=== PATIENT | male | born 1970 | race Caucasian/White ===

== ENCOUNTER → 2018-09-19 16:11 | Outpatient (CLI) | payer OTHER, MEDICAID, SELFPAY ==
--- NOTE | 2018-09-19 | DI.RAD.S_ITS ---
PROCEDURE: XR LUMBAR SPINE 2-3V INDICATIONS: LOW BACK PAIN TECHNIQUE: 3 views of the lumbar spine were acquired. COMPARISON: [facility], , L-SPINE 2-3 VIEWS, 05/12/2008, 10:37. FINDINGS: Bones: 5 [id number] vertebrae are present. There is scoliosis. No vertebral body compression fractures. No suspicious bony lesions. There is mild to moderate degenerative disc disease at L3-L4 and L4-L5. Soft tissues: Overlying bowel gas pattern is normal. No suspicious soft tissue calcifications. IMPRESSION: 1. Mild degenerative disc disease and facet arthropathy. 2. Mild scoliosis. Dictated by: Luca Elena M.D. on 09/19/2018 at 17:47 Approved by: Luca Elena M.D. on 09/19/2018 at 17:49
== END ==
PROVIDERS: Family Provider Family Medicine; Visit Provider Internal Medicine
DX: M54.5 Low back pain (principal); M51.36 Other intervertebral disc degeneration, lumbar region; M47.816 Spondylosis without myelopathy or radiculopathy, lumbar region; M47.9 Spondylosis, unspecified
CPT/HCPCS: 72100

== ENCOUNTER 2018-12-27 09:00 | Outpatient (RCR) | payer OTHER, MEDICAID, SELFPAY ==
--- NOTE | 2018-12-04 15:05 | PT.OIE ---
Current Diagnoses Stiffness of unspecified joint, not elsewhere classified (12/04/18) Low back pain (12/04/18) Provider Visit Care Team Role Provider Type Nguyễn Olivas MD Attending Provider Physician Primary Care Provider Specialty: Wound Care Address: [address] [place] [address], [id number] Email: [email or web address] Physical Therapy Initial Evaluation PT-OP-A Visit Information Start: 12/04/18 14:35 Freq: Status: Active Protocol: Document 12/04/18 13:45 DCW (Rec: 12/04/18 15:05 DC [id number]) Out-Patient Physical Therapy Visit Information Visit Information Visit Type Initial Evaluation Visit Start Time 13:45 Visit Stop Time 14:25 Total Visit Minutes 40 Visit Number 1 Number of SEAMAN OFFICER Visits 0 Evaluation Information Evaluation Date 12/04/18 PT-OP-B Current Condition Start: 12/04/18 14:35 Freq: Status: Active Protocol: Document 12/04/18 13:45 DCW (Rec: 12/04/18 15:05 DCW [id number]) Current Condition History of Current Condition Onset Date 4-5 year history Current Complaints Low back pain, stiffness, difficulty lifting History of Current Condition Pt is a 48 year old male presenting to physical therapy with complaints of chronic low back pain. Pt reports he has been having pain for 4-5 years, and onset was insidious in nature. Pt notes his pain varies day-to-day, but does not seem to have gotten any better or worse over the past few years. 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 Pt reports he has begun to work on losing weight, which he believes will help, and has already lost 15 pounds. Pt denies radicular symptoms, but does not a left inguinal hernia, which may be detrimental to some of his activity as well. Prior Treatments and Tests MRI:Degenerative disc bulge and bilateral facet arthrosis at L3-4 through L5-S1 levels causing mild-moderate central canal stenosis, per Bj Mchugh on 09/30/18. Treatment Goals Patient/Caregiver Goals Pt reports his goal is to improve his agility and to return to reasonable active living without pain. Prior Functional Status Baseline Function- ADL's Independent Baseline Function- Mobility Independent Current Functional Impairments (Reported) Functional Limitations- ADL's Reports he normally gets to a point in the evening when he feels he has to be done with the standing portion of my day , and spend the rest of the day laying down because of pain. 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 PT-OP-C Subjective Start: 12/04/18 14:35 Freq: Status: Active Protocol: Document 12/04/18 13:45 DCW (Rec: 12/04/18 15:05 DCW [id number]) OP-PT Subjective Patient Comments Patient Reported Progress Same Patient Questionnaires Oswestry Low Back Index Oswestry Score 14/40 = 35% (2 answers left blank) Oswestry Impairment 20 to 39% Impaired (Score 20- 39) OP-PT Pain Assessment Pain Assessment Grid Paper Pain Assessment Grid Completed Yes Location Bilateral Lower Back Intensity 7 Scale Used Numeric (1 - 10) Description Chronic Sharp Spasm Tender Tightness Pain Aggravating Factors Standing Bending Lifting PT-OP-F Manual Assessment Start: 12/04/18 14:35 Freq: Status: Active Protocol: Document 12/04/18 13:45 DCW (Rec: 12/04/18 15:05 DCW [id number]) Manual Assessments Soft Tissue Assessment Soft Tissue Mobility Assessment Moderate tone in lumbar paraspinals, R>L Moderate tone R QL Moderate bilateral hamstring tightness Joint Mobility Assessment Joint Mobility Assessment L3, L4 hypomobility with P->A joint mobilizations, reports of discomfort. PT-OP-K Range of Motion Start: 12/04/18 14:35 Freq: Status: Active Protocol: Document 12/04/18 13:45 DCW (Rec: 12/04/18 15:05 DCW [id number]) Lumbar Spine Range of Motion Lumbar Spine Active Degrees Testing Position Standing Flexion 40 Extension 20 ROM Limitations Soft Tissue Tightness Muscle Tone Comments Lateral flexion measured in cm , fingertips to floor. Left: 64 cm; Right: 59 cm PT-OP-L Special Tests Start: 12/04/18 14:35 Freq: Status: Active Protocol: Document 12/04/18 13:45 DCW (Rec: 12/04/18 15:05 [facility] [id number]) Special Tests Lumbar Spine Special Tests Lateral SI compression Test Results Negative A-P Shearing Test Results Negative Vertical Spine Loading Test Results Negative Straight Leg Raise Test Results + for pain on right side with active SLR Standing Flexion Test Results c/o tightness at 40? Prone Press Up Test Results Negative Compression Test Results Negative Hip Special Tests REY Test Results Negative PT-OP-M Strength Start: 12/04/18 14:35 Freq: Status: Active Protocol: Document 12/04/18 13:45 DCW (Rec: 12/04/18 15:05 [facility] [id number]) Trunk Strength Trunk Manual Muscle Testing Testing Position Supine Core Stabilization Pt able to maintain TrA contraction with bilateral SLR for 5 seconds with no pain; 5 /5 Hip Strength Hip Manual Muscle Testing Bilateral Flexion (L2) 5 Normal Abduction 5 Normal Adduction 5 Normal External Rotation 5 Normal Internal Rotation 5 Normal Knee Strength Knee Manual Muscle Testing Bilateral Flexion (S2) 5 Normal Extension (L3) 5 Normal Ankle/Foot Strength Ankle and Foot Manual Muscle Testing Bilateral Dorsiflexion (L4) 5 Normal Plantarflexion (S1) 5 Normal PT-OP-Q Treatments Start: 12/04/18 14:35 Freq: Status: Active Protocol: Document 12/04/18 13:45 DCW (Rec: 12/04/18 15:05 [facility] [id number]) Therapeutic Exercises Sitting Exercises [place] Sitting Exercise Name [place] Side bilateral Lumbar Flexion Sitting Exercise Name Seated lumbar flexion stretch Comments focus on flexion from lumbar spine, not hips or T-spine PT-OP-T Assessment and Plan Start: 12/04/18 14:35 Freq: Status: Active Protocol: Document 12/04/18 13:45 DCW (Rec: 12/04/18 15:05 [facility] [id number]) Physical Therapy Assessment Rehab Potential Rehabilitation Potential Good Evaluation Complexity Number of Personal Factors/Comorbidities 0 Number of Body Systems Impaired 3 Clinical Presentation at Evaluation Stable Impairments Impairments Activity Tolerance Pain Posture Soft Tissue Mobility Goals Five Impairment Pt has a 5 cm discrepancy in L vs R lumbar lateral flexion Mcfp Goal (LTG) Pt to demonstrate lumbar lateral flexion L=R LTG Duration 02/03/19 Four Impairment Positive right SLR Short Term Goal (STG) Negative SLR bilaterally STG Duration 01/03/19 Three Impairment Pt scores 35% disability on Oswestry Mcfp Goal (LTG) Pt to score <20% disability on Oswestry LTG Duration 02/03/19 Two Impairment Pt experiences pain when helping band set up prior to shows Mcfp Goal (LTG) Pt to report no increase in pain when lifting or arranging amps or speakers LTG Duration 02/03/19 One Impairment Pt does not have an appropriate HEP Short Term Goal (STG) Pt to be independent and compliant with an independent HEP STG Duration 01/03/19 Assessment Summary Assessment Pt presents with moderate tone throughout his lumbar paraspinals, R>L, his Right QL , and his hamstrings bilaterally. Py also displays hypomobility in his L3 and L4 vertebrae. Pt's pain restricts him from standing for long periods of time, limits his participation in highly-active hobbies, and creates pain when setting up band equipment . Pt should benefit from skilled therapy focused on stretching/flexibility, manual therapy, modalities to decrease pain and improve mobility (e-stim/US), and training for body mechanics and posture to limit effects of back pain on his lifting. Physical Therapy Plan Frequency and Duration Frequency of Treatment 2x/Week Duration of Treatment 10 weeks Plan of Care Start Date 12/04/18 Plan of Care End Date 02/12/19 Therapeutic Interventions Therapeutic Interventions Home Exercise Program Joint Mobilizations Manual Therapy Neuromuscular Re-education Patient/Caregiver Education Soft Tissue Mobilization Taping Therapeutic Activities Therapeutic Exercises Modalities Cold Pack/Ice Massage Electric Stimulation Hot Packs Ultrasound Other Therapeutic Interventions Body mechanics training Next Visit Focus/Plan Next Note Type Treatment Note Next Visit Plan STM, stretching, e-stim/US, body mechanics training.
--- NOTE | 2018-12-04 15:07 | PT.OPPOC ---
Current Diagnoses Stiffness of unspecified joint, not elsewhere classified (12/04/18) Low back pain (12/04/18) Provider Visit Care Team Role Provider Type Nguyễn Olivas MD Attending Provider Physician Primary Care Provider Specialty: Wound Care Address: [address] [place] [address], [id number] Email: [email or web address] Plan Of Care PT-OP-T Assessment and Plan Start: 12/04/18 14:35 Freq: Status: Active Protocol: Document 12/04/18 13:45 DCW (Rec: 12/04/18 15:05 DCW [id number]) Physical Therapy Assessment Rehab Potential Rehabilitation Potential Good Evaluation Complexity Number of Personal Factors/Comorbidities 0 Number of Body Systems Impaired 3 Clinical Presentation at Evaluation Stable Impairments Impairments Activity Tolerance Pain Posture Soft Tissue Mobility Goals Five Impairment Pt has a 5 cm discrepancy in L vs R lumbar lateral flexion Complaint Coordinator Goal (LTG) Pt to demonstrate lumbar lateral flexion L=R LTG Duration 02/03/19 Four Impairment Positive right SLR Short Term Goal (STG) Negative SLR bilaterally STG Duration 01/03/19 Three Impairment Pt scores 35% disability on Oswestry Intermediate Goal (LTG) Pt to score <20% disability on Oswestry LTG Duration 02/03/19 Two Impairment Pt experiences pain when helping band set up prior to shows Complaint Coordinator Goal (LTG) Pt to report no increase in pain when lifting or arranging amps or speakers LTG Duration 02/03/19 One Impairment Pt does not have an appropriate HEP Short Term Goal (STG) Pt to be independent and compliant with an independent HEP STG Duration 01/03/19 Assessment Summary Assessment Pt presents with moderate tone throughout his lumbar paraspinals, R>L, his Right QL , and his hamstrings bilaterally. Py also displays hypomobility in his L3 and L4 vertebrae. Pt's pain restricts him from standing for long periods of time, limits his participation in highly-active hobbies, and creates pain when setting up band equipment . Pt should benefit from skilled therapy focused on stretching/flexibility, manual therapy, modalities to decrease pain and improve mobility (e-stim/US), and training for body mechanics and posture to limit effects of back pain on his lifting. Physical Therapy Plan Frequency and Duration Frequency of Treatment 2x/Week Duration of Treatment 10 weeks Plan of Care Start Date 12/04/18 Plan of Care End Date 02/12/19 Therapeutic Interventions Therapeutic Interventions Home Exercise Program Joint Mobilizations Manual Therapy Neuromuscular Re-education Patient/Caregiver Education Soft Tissue Mobilization Taping Therapeutic Activities Therapeutic Exercises Modalities Cold Pack/Ice Massage Electric Stimulation Hot Packs Ultrasound Other Therapeutic Interventions Body mechanics training Next Visit Focus/Plan Next Note Type Treatment Note Next Visit Plan STM, stretching, e-stim/US, body mechanics training. Plan of Care Dates Plan of Care Start Date 12/04/18 Plan of Care End Date 02/12/19 Please Sign and Return: I have reviewed this Plan of Care and certify that the skilled therapy services above are required to meet the patient?s needs. Physician Signature Date Printed Name and Credentials Clinical Instructor Signature Printed Name and Credentials
--- NOTE | 2018-12-16 19:03 | PT.OTN ---
Current Diagnoses Stiffness of unspecified joint, not elsewhere classified (12/16/18) Low back pain (12/16/18) Physical Therapy Treatment Note PT-OP-A Visit Information Start: 12/04/18 14:35 Freq: Status: Active Protocol: Document 12/17/18 07:50 [facility] (Rec: 12/17/18 08:03 [facility] [id number]) Out-Patient Physical Therapy Visit Information Visit Information Visit Type Treatment Note Visit Start Time 17:30 Visit Stop Time 18:30 Total Visit Minutes 60 Visit Number 2 Number of RAILROAD EMERGENCY SERVICES MANAGER Visits 0 PT-OP-B Current Condition Start: 12/04/18 14:35 Freq: Status: Active Protocol: Document 12/04/18 13:45 DCW (Rec: 12/04/18 15:05 DCW [id number]) Current Condition History of Current Condition Onset Date 4-5 year history Current Complaints Low back pain, stiffness, difficulty lifting History of Current Condition Pt is a 48 year old male presenting to physical therapy with complaints of chronic low back pain. Pt reports he has been having pain for 4-5 years, and onset was insidious in nature. Pt notes his pain varies day-to-day, but does not seem to have gotten any better or worse over the past few years. 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 Pt reports he has begun to work on losing weight, which he believes will help, and has already lost 15 pounds. Pt denies radicular symptoms, but does not a left inguinal hernia, which may be detrimental to some of his activity as well. Prior Treatments and Tests MRI:Degenerative disc bulge and bilateral facet arthrosis at L3-4 through L5-S1 levels causing mild-moderate central canal stenosis, per Bj Mchugh on 09/30/18. Treatment Goals Patient/Caregiver Goals Pt reports his goal is to improve his agility and to return to reasonable active living without pain. Prior Functional Status Baseline Function- ADL's Independent Baseline Function- Mobility Independent Current Functional Impairments (Reported) Functional Limitations- ADL's Reports he normally gets to a point in the evening when he feels he has to be done with the standing portion of my day , and spend the rest of the day laying down because of pain. 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 Notes he is sore today. PT-OP-F Manual Assessment Start: 12/04/18 14:35 Freq: Status: Active Protocol: Document 12/04/18 13:45 DCW (Rec: 12/04/18 15:05 DCW [id number]) Manual Assessments Soft Tissue Assessment Soft Tissue Mobility Assessment Moderate tone in lumbar paraspinals, R>L Moderate tone R QL Moderate bilateral hamstring tightness Joint Mobility Assessment Joint Mobility Assessment L3, L4 hypomobility with P->A joint mobilizations, reports of discomfort. PT-OP-K Range of Motion Start: 12/04/18 14:35 Freq: Status: Active Protocol: Document 12/04/18 13:45 DCW (Rec: 12/04/18 15:05 DCW [id number]) Lumbar Spine Range of Motion Lumbar Spine Active Degrees Testing Position Standing Flexion 40 Extension 20 ROM Limitations Soft Tissue Tightness Muscle Tone Comments Lateral flexion measured in cm , fingertips to floor. Left: 64 cm; Right: 59 cm PT-OP-L Special Tests Start: 12/04/18 14:35 Freq: Status: Active Protocol: Document 12/04/18 13:45 DCW (Rec: 12/04/18 15:05 DCW [id number]) Special Tests Lumbar Spine Special Tests Lateral SI compression Test Results Negative A-P Shearing Test Results Negative Vertical Spine Loading Test Results Negative Straight Leg Raise Test Results + for pain on right side with active SLR Standing Flexion Test Results c/o tightness at 40? Prone Press Up Test Results Negative Compression Test Results Negative Hip Special Tests REY Test Results Negative PT-OP-M Strength Start: 12/04/18 14:35 Freq: Status: Active Protocol: Document 12/04/18 13:45 DCW (Rec: 12/04/18 15:05 DCW [id number]) Trunk Strength Trunk Manual Muscle Testing Testing Position Supine Core Stabilization Pt able to maintain TrA contraction with bilateral SLR for 5 seconds with no pain; 5 /5 Hip Strength Hip Manual Muscle Testing Bilateral Flexion (L2) 5 Normal Abduction 5 Normal Adduction 5 Normal External Rotation 5 Normal Internal Rotation 5 Normal Knee Strength Knee Manual Muscle Testing Bilateral Flexion (S2) 5 Normal Extension (L3) 5 Normal Ankle/Foot Strength Ankle and Foot Manual Muscle Testing Bilateral Dorsiflexion (L4) 5 Normal Plantarflexion (S1) 5 Normal PT-OP-Q Treatments Start: 12/04/18 14:35 Freq: Status: Active Protocol: Document 12/17/18 07:50 [facility] (Rec: 12/17/18 08:03 [facility] [id number]) Therapeutic Exercises Supine Exercises brace Supine Exercise Name abdomenal brace Reps/Minutes 8 Comments w/focus on breathing hip flex Supine Exercise Name alt august Comments stopped d/t ant hip impingement sensation bridge Supine Exercise Name w/traction facilitation through LE Side bilateral Reps/Minutes 10 Sitting Exercises [place] Sitting Exercise Name [place] Side bilateral Lumbar Flexion Sitting Exercise Name Seated lumbar flexion stretch Comments focus on flexion from lumbar spine, not hips or T-spine Standing Exercises wall posture Standing Exercise Name wall roll up w/90/90 UE ER Side bilateral Reps/Minutes 20 Other Exercises quadruped Other Exercise Name hip ext Side bilateral Reps/Minutes 15 cat/camel Other Exercise Name cat/camel Reps/Minutes 5 Therapeutic Activity Therapeutic Activity lifting Name edu for lifting mechanics Comments started with lifting bolster and progressed to lifting 10lbs in crate sleeping Name sleeping position edu & handouts posture Name standing posture, desk posture , seated posture PT-OP-R Modalities Start: 12/04/18 14:35 Freq: Status: Active Protocol: Document 12/17/18 07:50 [facility] (Rec: 12/17/18 08:03 [facility] [id number]) Electric Stimulation Electric Stimulation Interferential Current (IFC) Body Location LS region Duration (Minutes) 15 Patient Position Hooklying Combined With Heat/Cold Hot Pack PT-OP-T Assessment and Plan Start: 12/04/18 14:35 Freq: Status: Active Protocol: Document 12/17/18 07:50 [facility] (Rec: 12/17/18 08:03 [facility] [id number]) Physical Therapy Assessment Goals Five Impairment Pt has a 5 cm discrepancy in L vs R lumbar lateral flexion Group Home Goal (LTG) Pt to demonstrate lumbar lateral flexion L=R LTG Duration 02/03/19 Four Impairment Positive right SLR Short Term Goal (STG) Negative SLR bilaterally STG Duration 01/03/19 Three Impairment Pt scores 35% disability on Oswestry Revenue Specialist Goal (LTG) Pt to score <20% disability on Oswestry LTG Duration 02/03/19 Two Impairment Pt experiences pain when helping band set up prior to shows Revenue Specialist Goal (LTG) Pt to report no increase in pain when lifting or arranging amps or speakers LTG Duration 02/03/19 One Impairment Pt does not have an appropriate HEP Short Term Goal (STG) Pt to be independent and compliant with an independent HEP STG Duration 01/03/19 Assessment Summary Assessment Pt rounded back inititially into flex to lift up a box and required cueing for straight back. He then required correction as she extended his lower lumbar & sacral region when standing up from a squat. WIth cueing for glute & core activition, pt was able to do it without pain. He required cueing and facilition for exercises, but was able to participate in exercises. Physical Therapy Plan Frequency and Duration Frequency of Treatment 2x/Week Duration of Treatment 10 weeks Plan of Care Start Date 12/04/18 Plan of Care End Date 02/12/19 Next Visit Focus/Plan Next Note Type Treatment Note Next Visit Plan STM, hip and sacral mobs, assess response to estim, review lifting mechanics & posture.
--- NOTE | 2018-12-18 14:28 | PT.OTN ---
Current Diagnoses Stiffness of unspecified joint, not elsewhere classified (12/18/18) Low back pain (12/18/18) Physical Therapy Treatment Note PT-OP-A Visit Information Start: 12/04/18 14:35 Freq: Status: Active Protocol: Document 12/18/18 13:45 DCW (Rec: 12/18/18 14:28 DCW [id number]) Out-Patient Physical Therapy Visit Information Visit Information Visit Type Treatment Note Visit Start Time 13:45 Visit Stop Time 14:30 Total Visit Minutes 45 Visit Number 3 Number of WELFARE AIDE Visits 0 Evaluation Information Evaluation Date 12/04/18 PT-OP-B Current Condition Start: 12/04/18 14:35 Freq: Status: Active Protocol: Document 12/04/18 13:45 DCW (Rec: 12/04/18 15:05 DCW [id number]) Current Condition History of Current Condition Onset Date 4-5 year history Current Complaints Low back pain, stiffness, difficulty lifting History of Current Condition Pt is a 48 year old male presenting to physical therapy with complaints of chronic low back pain. Pt reports he has been having pain for 4-5 years, and onset was insidious in nature. Pt notes his pain varies day-to-day, but does not seem to have gotten any better or worse over the past few years. 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 Pt reports he has begun to work on losing weight, which he believes will help, and has already lost 15 pounds. Pt denies radicular symptoms, but does not a left inguinal hernia, which may be detrimental to some of his activity as well. Prior Treatments and Tests MRI:Degenerative disc bulge and bilateral facet arthrosis at L3-4 through L5-S1 levels causing mild-moderate central canal stenosis, per Bj Mchugh on 09/30/18. Treatment Goals Patient/Caregiver Goals Pt reports his goal is to improve his agility and to return to reasonable active living without pain. Prior Functional Status Baseline Function- ADL's Independent Baseline Function- Mobility Independent Current Functional Impairments (Reported) Functional Limitations- ADL's Reports he normally gets to a point in the evening when he feels he has to be done with the standing portion of my day , and spend the rest of the day laying down because of pain. 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 PT-OP-F Manual Assessment Start: 12/04/18 14:35 Freq: Status: Active Protocol: Document 12/04/18 13:45 DCW (Rec: 12/04/18 15:05 DCW [id number]) Manual Assessments Soft Tissue Assessment Soft Tissue Mobility Assessment Moderate tone in lumbar paraspinals, R>L Moderate tone R QL Moderate bilateral hamstring tightness Joint Mobility Assessment Joint Mobility Assessment L3, L4 hypomobility with P->A joint mobilizations, reports of discomfort. PT-OP-K Range of Motion Start: 12/04/18 14:35 Freq: Status: Active Protocol: Document 12/04/18 13:45 DCW (Rec: 12/04/18 15:05 DCW [id number]) Lumbar Spine Range of Motion Lumbar Spine Active Degrees Testing Position Standing Flexion 40 Extension 20 ROM Limitations Soft Tissue Tightness Muscle Tone Comments Lateral flexion measured in cm , fingertips to floor. Left: 64 cm; Right: 59 cm PT-OP-L Special Tests Start: 12/04/18 14:35 Freq: Status: Active Protocol: Document 12/04/18 13:45 DCW (Rec: 12/04/18 15:05 DCW [id number]) Special Tests Lumbar Spine Special Tests Lateral SI compression Test Results Negative A-P Shearing Test Results Negative Vertical Spine Loading Test Results Negative Straight Leg Raise Test Results + for pain on right side with active SLR Standing Flexion Test Results c/o tightness at 40? Prone Press Up Test Results Negative Compression Test Results Negative Hip Special Tests REY Test Results Negative PT-OP-M Strength Start: 12/04/18 14:35 Freq: Status: Active Protocol: Document 12/04/18 13:45 DCW (Rec: 12/04/18 15:05 DCW [id number]) Trunk Strength Trunk Manual Muscle Testing Testing Position Supine Core Stabilization Pt able to maintain TrA contraction with bilateral SLR for 5 seconds with no pain; 5 /5 Hip Strength Hip Manual Muscle Testing Bilateral Flexion (L2) 5 Normal Abduction 5 Normal Adduction 5 Normal External Rotation 5 Normal Internal Rotation 5 Normal Knee Strength Knee Manual Muscle Testing Bilateral Flexion (S2) 5 Normal Extension (L3) 5 Normal Ankle/Foot Strength Ankle and Foot Manual Muscle Testing Bilateral Dorsiflexion (L4) 5 Normal Plantarflexion (S1) 5 Normal PT-OP-Q Treatments Start: 12/04/18 14:35 Freq: Status: Active Protocol: Document 12/18/18 13:45 DCW (Rec: 12/18/18 14:28 DCW [id number]) Therapeutic Exercises Supine Exercises PPT /c SLR Supine Exercise Name PPT, abdominal brace, alternating SLR Side bilateral brace Supine Exercise Name abdominal brace Reps/Minutes x10 Comments w/focus on breathing bridge Supine Exercise Name w/traction facilitation through LE Side bilateral Reps/Minutes 10 Other Exercises child's pose Other Exercise Name child's pose quadruped Other Exercise Name hip ext Side bilateral Reps/Minutes 15 cat/camel Other Exercise Name cat/camel Reps/Minutes 5 Manual Therapy Treatment Soft Tissue Mobilization QL Body Location R QL Mobilization Type Myofascial Release Sustained Pressure Trigger Point Release Body Position Prone Paraspinals Body Location B Lumbar paraspinals Mobilization Type Myofascial Release Sustained Pressure Trigger Point Release Body Position Prone Joint Mobilizations Lumbar Joint L1-5 Direction P->A Grade III Body Position Prone Manual Traction Lower Extremity Details Long-axis LE traction Body Position Supine PT-OP-R Modalities Start: 12/04/18 14:35 Freq: Status: Active Protocol: Document 12/18/18 13:45 DCW (Rec: 12/18/18 14:28 DCW [id number]) Electric Stimulation Electric Stimulation Interferential Current (IFC) Body Location LS region Duration (Minutes) 15 Patient Position Hooklying Combined With Heat/Cold Hot Pack PT-OP-T Assessment and Plan Start: 12/04/18 14:35 Freq: Status: Active Protocol: Document 12/18/18 13:45 DCW (Rec: 12/18/18 14:28 DCW [id number]) Physical Therapy Assessment Goals Five Impairment Pt has a 5 cm discrepancy in L vs R lumbar lateral flexion Taxi Servicer Goal (LTG) Pt to demonstrate lumbar lateral flexion L=R LTG Duration 02/03/19 Four Impairment Positive right SLR Short Term Goal (STG) Negative SLR bilaterally STG Duration 01/03/19 Three Impairment Pt scores 35% disability on Oswestry Taxi Servicer Goal (LTG) Pt to score <20% disability on Oswestry LTG Duration 02/03/19 Two Impairment Pt experiences pain when helping band set up prior to shows Taxi Servicer Goal (LTG) Pt to report no increase in pain when lifting or arranging amps or speakers LTG Duration 02/03/19 One Impairment Pt does not have an appropriate HEP Short Term Goal (STG) Pt to be independent and compliant with an independent HEP STG Duration 01/03/19 Assessment Summary Assessment Pt admits he has difficulty differentiating between stretch and pain, so he is unsure when to stop his stretches. Attempted pt edu for stretch vs pain. Physical Therapy Plan Frequency and Duration Frequency of Treatment 2x/Week Duration of Treatment 10 weeks Plan of Care Start Date 12/04/18 Plan of Care End Date 02/12/19 Therapeutic Interventions Therapeutic Interventions Home Exercise Program Joint Mobilizations Manual Therapy Neuromuscular Re-education Patient/Caregiver Education Soft Tissue Mobilization Taping Therapeutic Activities Therapeutic Exercises Modalities Cold Pack/Ice Massage Electric Stimulation Hot Packs Ultrasound Other Therapeutic Interventions Body mechanics training Next Visit Focus/Plan Next Note Type Treatment Note Next Visit Plan STM, hip and sacral mobs, assess response to estim, review lifting mechanics & posture.
--- NOTE | 2018-12-27 09:43 | PT.OTN ---
Current Diagnoses Stiffness of unspecified joint, not elsewhere classified (12/27/18) Low back pain (12/27/18) Physical Therapy Treatment Note PT-OP-A Visit Information Start: 12/04/18 14:35 Freq: Status: Active Protocol: Document 12/27/18 09:00 DCW (Rec: 12/27/18 09:43 DCW [id number]) Out-Patient Physical Therapy Visit Information Visit Information Visit Type Treatment Note Visit Start Time 09:00 Visit Stop Time 09:45 Total Visit Minutes 45 Visit Number 4 Number of NURSING PROGRAM DIRECTOR Visits 0 Evaluation Information Evaluation Date 12/04/18 PT-OP-B Current Condition Start: 12/04/18 14:35 Freq: Status: Active Protocol: Document 12/04/18 13:45 DCW (Rec: 12/04/18 15:05 DCW [id number]) Current Condition History of Current Condition Onset Date 4-5 year history Current Complaints Low back pain, stiffness, difficulty lifting History of Current Condition Pt is a 48 year old male presenting to physical therapy with complaints of chronic low back pain. Pt reports he has been having pain for 4-5 years, and onset was insidious in nature. Pt notes his pain varies day-to-day, but does not seem to have gotten any better or worse over the past few years. 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 Pt reports he has begun to work on losing weight, which he believes will help, and has already lost 15 pounds. Pt denies radicular symptoms, but does not a left inguinal hernia, which may be detrimental to some of his activity as well. Prior Treatments and Tests MRI:Degenerative disc bulge and bilateral facet arthrosis at L3-4 through L5-S1 levels causing mild-moderate central canal stenosis, per Bj Mchugh on 09/30/18. Treatment Goals Patient/Caregiver Goals Pt reports his goal is to improve his agility and to return to reasonable active living without pain. Prior Functional Status Baseline Function- ADL's Independent Baseline Function- Mobility Independent Current Functional Impairments (Reported) Functional Limitations- ADL's Reports he normally gets to a point in the evening when he feels he has to be done with the standing portion of my day , and spend the rest of the day laying down because of pain. 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 PT-OP-F Manual Assessment Start: 12/04/18 14:35 Freq: Status: Active Protocol: Document 12/04/18 13:45 DCW (Rec: 12/04/18 15:05 DCW [id number]) Manual Assessments Soft Tissue Assessment Soft Tissue Mobility Assessment Moderate tone in lumbar paraspinals, R>L Moderate tone R QL Moderate bilateral hamstring tightness Joint Mobility Assessment Joint Mobility Assessment L3, L4 hypomobility with P->A joint mobilizations, reports of discomfort. PT-OP-K Range of Motion Start: 12/04/18 14:35 Freq: Status: Active Protocol: Document 12/04/18 13:45 DCW (Rec: 12/04/18 15:05 DCW [id number]) Lumbar Spine Range of Motion Lumbar Spine Active Degrees Testing Position Standing Flexion 40 Extension 20 ROM Limitations Soft Tissue Tightness Muscle Tone Comments Lateral flexion measured in cm , fingertips to floor. Left: 64 cm; Right: 59 cm PT-OP-L Special Tests Start: 12/04/18 14:35 Freq: Status: Active Protocol: Document 12/04/18 13:45 DCW (Rec: 12/04/18 15:05 DCW [id number]) Special Tests Lumbar Spine Special Tests Lateral SI compression Test Results Negative A-P Shearing Test Results Negative Vertical Spine Loading Test Results Negative Straight Leg Raise Test Results + for pain on right side with active SLR Standing Flexion Test Results c/o tightness at 40? Prone Press Up Test Results Negative Compression Test Results Negative Hip Special Tests REY Test Results Negative PT-OP-M Strength Start: 12/04/18 14:35 Freq: Status: Active Protocol: Document 12/04/18 13:45 DCW (Rec: 12/04/18 15:05 DCW [id number]) Trunk Strength Trunk Manual Muscle Testing Testing Position Supine Core Stabilization Pt able to maintain TrA contraction with bilateral SLR for 5 seconds with no pain; 5 /5 Hip Strength Hip Manual Muscle Testing Bilateral Flexion (L2) 5 Normal Abduction 5 Normal Adduction 5 Normal External Rotation 5 Normal Internal Rotation 5 Normal Knee Strength Knee Manual Muscle Testing Bilateral Flexion (S2) 5 Normal Extension (L3) 5 Normal Ankle/Foot Strength Ankle and Foot Manual Muscle Testing Bilateral Dorsiflexion (L4) 5 Normal Plantarflexion (S1) 5 Normal PT-OP-Q Treatments Start: 12/04/18 14:35 Freq: Status: Active Protocol: Document 12/27/18 09:00 DCW (Rec: 12/27/18 09:43 DCW [id number]) Gym Equipment Therapeutic Ball Rotations vs resistance Exercise Details Trunk rotations vs T-band resistance Ball Size/Color Green - 65 cm Lv 3 T-band Body Position Sitting Low trunk rotations Exercise Details LEs on ball, knees bent, side- ti-side rotation Ball Size/Color Red - 55 cm Body Position Supine Therapeutic Exercises Supine Exercises Piriformis Stretch Supine Exercise Name Hhzz-pb-cyqojuyb shoulder Side bilateral Psoas Stretch Supine Exercise Name Psoas Stretch Side bilateral Comments leg off table Hamstring Stretch Supine Exercise Name HS stretch Side bilateral Manual Therapy Treatment Soft Tissue Mobilization QL Body Location B QL Mobilization Type Myofascial Release Sustained Pressure Trigger Point Release Body Position Prone Paraspinals Body Location B Lumbar paraspinals Mobilization Type Myofascial Release Sustained Pressure Trigger Point Release Body Position Prone Joint Mobilizations Lumbar Joint L1-5 Direction P->A Grade III Body Position Prone Manual Traction Lower Extremity Details Long-axis LE traction Body Position Supine Comments ineffective today PT-OP-R Modalities Start: 12/04/18 14:35 Freq: Status: Active Protocol: Document 12/18/18 13:45 DCW (Rec: 12/18/18 14:28 DCW [id number]) Electric Stimulation Electric Stimulation Interferential Current (IFC) Body Location LS region Duration (Minutes) 15 Patient Position Hooklying Combined With Heat/Cold Hot Pack PT-OP-T Assessment and Plan Start: 12/04/18 14:35 Freq: Status: Active Protocol: Document 12/27/18 09:00 DCW (Rec: 12/27/18 09:43 DCW [id number]) Physical Therapy Assessment Goals Five Impairment Pt has a 5 cm discrepancy in L vs R lumbar lateral flexion Prison Goal (LTG) Pt to demonstrate lumbar lateral flexion L=R LTG Duration 02/03/19 Four Impairment Positive right SLR Short Term Goal (STG) Negative SLR bilaterally STG Duration 01/03/19 Three Impairment Pt scores 35% disability on Oswestry Prison Goal (LTG) Pt to score <20% disability on Oswestry LTG Duration 02/03/19 Two Impairment Pt experiences pain when helping band set up prior to shows Bartacker Goal (LTG) Pt to report no increase in pain when lifting or arranging amps or speakers LTG Duration 02/03/19 One Impairment Pt does not have an appropriate HEP Short Term Goal (STG) Pt to be independent and compliant with an independent HEP STG Duration 01/03/19 Assessment Summary Assessment Pt reports that he does not feel any benefit from e-stim, so agreeable to skip today. Pt educated on home stretching program to help loosen up hip tightness. Physical Therapy Plan Frequency and Duration Frequency of Treatment 2x/Week Duration of Treatment 10 weeks Plan of Care Start Date 12/04/18 Plan of Care End Date 02/12/19 Therapeutic Interventions Therapeutic Interventions Home Exercise Program Joint Mobilizations Manual Therapy Neuromuscular Re-education Patient/Caregiver Education Soft Tissue Mobilization Taping Therapeutic Activities Therapeutic Exercises Modalities Cold Pack/Ice Massage Electric Stimulation Hot Packs Ultrasound Other Therapeutic Interventions Body mechanics training Next Visit Focus/Plan Next Note Type Treatment Note Next Visit Plan STM, hip and sacral mobs, assess response to estim, review lifting mechanics & posture.
--- NOTE | 2019-04-07 15:55 | PT.OPDS ---
Current Diagnoses Stiffness of unspecified joint, not elsewhere classified (12/27/18) Low back pain (12/27/18) Visit Care Team Role Provider Type Nguyễn Olivas MD Attending Provider Physician Primary Care Provider Specialty: Wound Care Address: [address] [place] [address], [id number] Email: [email or web address] Visit Number Visit Number 4 Discharge Summary PT-OP-B Current Condition Start: 12/04/18 14:35 Freq: Status: Active Protocol: Document 12/04/18 13:45 DCW (Rec: 12/04/18 15:05 DCW [id number]) Current Condition History of Current Condition Onset Date 4-5 year history Current Complaints Low back pain, stiffness, difficulty lifting History of Current Condition Pt is a 48 year old male presenting to physical therapy with complaints of chronic low back pain. Pt reports he has been having pain for 4-5 years, and onset was insidious in nature. Pt notes his pain varies day-to-day, but does not seem to have gotten any better or worse over the past few years. 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 Pt reports he has begun to work on losing weight, which he believes will help, and has already lost 15 pounds. Pt denies radicular symptoms, but does not a left inguinal hernia, which may be detrimental to some of his activity as well. Prior Treatments and Tests MRI:Degenerative disc bulge and bilateral facet arthrosis at L3-4 through L5-S1 levels causing mild-moderate central canal stenosis, per Bj Mchugh on 09/30/18. Treatment Goals Patient/Caregiver Goals Pt reports his goal is to improve his agility and to return to reasonable active living without pain. Prior Functional Status Baseline Function- ADL's Independent Baseline Function- Mobility Independent Current Functional Impairments (Reported) Functional Limitations- ADL's Reports he normally gets to a point in the evening when he feels he has to be done with the standing portion of my day , and spend the rest of the day laying down because of pain. 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 PT-OP-F Manual Assessment Start: 12/04/18 14:35 Freq: Status: Active Protocol: Document 12/04/18 13:45 DCW (Rec: 12/04/18 15:05 DCW [id number]) Manual Assessments Soft Tissue Assessment Soft Tissue Mobility Assessment Moderate tone in lumbar paraspinals, R>L Moderate tone R QL Moderate bilateral hamstring tightness Joint Mobility Assessment Joint Mobility Assessment L3, L4 hypomobility with P->A joint mobilizations, reports of discomfort. PT-OP-K Range of Motion Start: 12/04/18 14:35 Freq: Status: Active Protocol: Document 12/04/18 13:45 DCW (Rec: 12/04/18 15:05 DCW [id number]) Lumbar Spine Range of Motion Lumbar Spine Active Degrees Testing Position Standing Flexion 40 Extension 20 ROM Limitations Soft Tissue Tightness,Muscle Tone Comments Lateral flexion measured in cm , fingertips to floor. Left: 64 cm; Right: 59 cm PT-OP-L Special Tests Start: 12/04/18 14:35 Freq: Status: Active Protocol: Document 12/04/18 13:45 DCW (Rec: 12/04/18 15:05 DCW [id number]) Special Tests Lumbar Spine Special Tests Lateral SI compression Test Results Negative A-P Shearing Test Results Negative Vertical Spine Loading Test Results Negative Straight Leg Raise Test Results + for pain on right side with active SLR Standing Flexion Test Results c/o tightness at 40? Prone Press Up Test Results Negative Compression Test Results Negative Hip Special Tests REY Test Results Negative PT-OP-M Strength Start: 12/04/18 14:35 Freq: Status: Active Protocol: Document 12/04/18 13:45 DCW (Rec: 12/04/18 15:05 DCW [id number]) Trunk Strength Trunk Manual Muscle Testing Testing Position Supine Core Stabilization Pt able to maintain TrA contraction with bilateral SLR for 5 seconds with no pain; 5 /5 Hip Strength Hip Manual Muscle Testing Bilateral Flexion (L2) 5 Normal Abduction 5 Normal Adduction 5 Normal External Rotation 5 Normal Internal Rotation 5 Normal Knee Strength Knee Manual Muscle Testing Bilateral Flexion (S2) 5 Normal Extension (L3) 5 Normal Ankle/Foot Strength Ankle and Foot Manual Muscle Testing Bilateral Dorsiflexion (L4) 5 Normal Plantarflexion (S1) 5 Normal PT-OP-T Assessment and Plan Start: 12/04/18 14:35 Freq: Status: Active Protocol: Document 04/07/19 15:52 DCW (Rec: 04/07/19 15:55 DCW [id number]) Physical Therapy Assessment Goals Five Impairment Pt has a 5 cm discrepancy in L vs R lumbar lateral flexion Care Home Goal (LTG) Pt to demonstrate lumbar lateral flexion L=R LTG Duration 02/03/19 Four Impairment Positive right SLR Short Term Goal (STG) Negative SLR bilaterally STG Duration 01/03/19 Three Impairment Pt scores 35% disability on Oswestry Baseball Winder Goal (LTG) Pt to score <20% disability on Oswestry LTG Duration 02/03/19 Two Impairment Pt experiences pain when helping band set up prior to shows Baseball Winder Goal (LTG) Pt to report no increase in pain when lifting or arranging amps or speakers LTG Duration 02/03/19 One Impairment Pt does not have an appropriate HEP Short Term Goal (STG) Pt to be independent and compliant with an independent HEP STG Duration 01/03/19 Assessment Summary Assessment Pt cancelled last two visits, has now not been seen in nearly three months. Pt will be discharged from skilled therapy at this time, and will require a new referral in order to return. Physical Therapy Plan Frequency and Duration Frequency of Treatment 2x/Week Duration of Treatment 10 weeks Plan of Care Start Date 12/04/18 Plan of Care End Date 02/12/19 Therapeutic Interventions Therapeutic Interventions Home Exercise Program,Joint Mobilizations,Manual Therapy, Neuromuscular Re-education, Patient/Caregiver Education, Soft Tissue Mobilization, Taping,Therapeutic Activities, Therapeutic Exercises Modalities Cold Pack/Ice Massage,Electric Stimulation,Hot Packs, Ultrasound Other Therapeutic Interventions Body mechanics training Discharge Physical Therapy Discharge Reasons No Longer Attending PT Next Visit Focus/Plan Next Note Type Discharge Summary
== END 2019-04-24 10:55 | disposition home or self-care (01) ==
LOC: PHYS 09:00
PROVIDERS: PCP Internal Medicine; Visit Provider Internal Medicine
DX: M54.5 Low back pain (principal); M25.60 Stiffness of unspecified joint, not elsewhere classified
CPT/HCPCS: 97014; 97110; 97140; 97161; 97530; G0283

== ENCOUNTER → 2019-06-30 16:42 | Outpatient (CLI) | payer OTHER, MEDICAID, SELFPAY ==
[2019-07-03 17:00] LABS: PSA, Total 0.5 ng/mL (< 4.1)
== END ==
PROVIDERS: PCP Internal Medicine; Visit Provider Internal Medicine
DX: R39.11 Hesitancy of micturition (principal)
CPT/HCPCS: 36415; 84153; 84154

== ENCOUNTER → 2019-12-12 10:29 | Outpatient (CLI) | payer OTHER, MEDICAID, SELFPAY ==
--- NOTE | 2019-12-12 11:53 | DI.CT.S_ITS ---
PROCEDURE: CT PELVIS W CON INDICATIONS: mass LLQ abd wall. Hernia vs other. Has had hernia repair. TECHNIQUE: After the administration of oral contrast and intravenous contrast, 5 mm thick sections acquired from the iliac crests to the symphysis. 5 mm thick coronal and sagittal reformats were acquired. For radiation dose reduction, the following was used: automated exposure control, adjustment of mA and/or kV according to patient size. COMPARISON: None. FINDINGS: Image quality: Excellent. Peritoneum and bowel: Contrast enhanced bowel loops demonstrate normal wall thickness and caliber. No free fluid or air. Genitourinary: Bladder wall thickness is normal. Nodes and vessels: No iliac, pelvic, or inguinal adenopathy. Iliac vessels demonstrate normal size and enhancement. Bones: No suspicious bony lesions. Miscellaneous: There is evidence of prior left internal herniorrhaphy. There is multinodular soft tissue density within the left inguinal region, spanning 83 mm transverse by 54 mm larry-posterior by 90 mm craniocaudal. No evidence of recurrent hernia. IMPRESSION: 1. Indeterminate multinodular density within the left angle region. Finding may be related to heal a formation. Percutaneous biopsy could be performed under sonographic guidance to assess for the less likely possibility of malignancy. Dictated by: Trey Gallo M.D. on 12/12/2019 at 15:59 Approved by: Trey Gallo M.D. on 12/12/2019 at 16:02
== END ==
PROVIDERS: PCP Internal Medicine; Referring Provider Specialist; Visit Provider Specialist
DX: R19.04 Left lower quadrant abdominal swelling, mass and lump (principal); Z98.890 Other specified postprocedural states; Z87.19 Personal history of other diseases of the digestive system
CPT/HCPCS: 72193

== ENCOUNTER → 2019-12-19 08:49 | Outpatient (CLI) | payer OTHER, MEDICAID, SELFPAY ==
[2019-12-20 22:46] LABS: COVID19 Sendout Not Detected (Not Detect)
== END ==
PROVIDERS: PCP Internal Medicine; Visit Provider Physician Assistant
DX: Z01.812 Encounter for preprocedural laboratory examination (principal)
CPT/HCPCS: 87635

== ENCOUNTER 2019-12-22 06:41 | Day surgery (SDC) | payer OTHER, MEDICAID, SELFPAY ==
[2019-12-16 15:20] VITALS: BMI 28.8
[2019-12-22] VITALS (12 sets, daily range): BP systolic 117–135; BP diastolic 78–91; PULSE 59–72; RESP 10–16; TEMP 36.2–36.6; O2SAT 93–99; BMI 29.0
[2019-12-22] MEDS: LACTATED RINGERS 1,000 ML 42 ML IV (07:23)
--- NOTE | 2019-12-22 07:39 | SUR.OPER ---
Supine on padded OR bed, head on pillow, arms secured on padded arm boards at <90 degrees abduction, legs uncrossed, safety belt at thigh, tape over blanket over lower legs.
--- NOTE | 2019-12-22 07:42 | PM.PREOP ---
Pre-operative Note COVID-19 COVID-19 status: Negative Result date/Date tested (Pos, Neg/Pending): 12/19/19 Interval Note History & Physical reviewed/Exam performed by Physician: Yes Changes to H&P: No
[2019-12-22] MEDS: CEFAZOLIN 2 GM/100 ML FROZ.PIGGY IV (07:45)
[2019-12-22] MEDS: BUPIVACAINE 0.5% (PF) VIAL 30 ML INJ (08:07)
--- NOTE | 2019-12-22 09:48 | P.OP_ITS ---
Operative Date/Time/Diagnoses Date of procedure: 12/22/19 Time of procedure: 09:48 Pre-op diagnosis: Left inguinal hernia recurrent Post-op diagnosis: other (Large venous vascular fatty mass. Did not appear neoplastic. Could not determine if a hernia lateral to the cord (which I suspected) was present . See repolrt for details.) Procedure & Clinicians Procedure: Wound exploration left groin Same procedure as scheduled: No (Procedure was abandoned due to the nature of the problem) Indications: Concern over recurrence of left inguinal hernia Surgeon: Pedro Carrillo Click Yes if Unassisted: Yes Anesthesia Type: General Operative Notes Findings: Varicosities within the cord and within a fatty mass external to the abdominal wall musculature. Extensive bridging veins between the thigh and the floor. Closure Type: primary Specimen(s): none sent Prosthetic devices, grafts, tissues, transplants, or devices: None placed Estimated Blood Loss (mL): 30 Blood products transfused: none Procedure in detail: The patient is placed supine on the operating room table and underwent general LMA anesthesia. Local anesthetic was infiltrated the prior repair scar and an incision made through it. Incision was carried down through the subcu to the level of the abdominal wall musculature. Encountered a rich network of veins actually external to the muscle. I carefully opened through the external oblique and encountered a rich vascular network in the area where wet I would if expect the cord structures to be. I began trying to dissect the cord from the scarring trying to be careful not to injure the rich venous network that was visible. This dissection was quite slow of necessity and I had to suture multiple small bridging veins to bring the bleeding from them under control. The rich venous network extended down to the pubic tubercle and as I tried to dissect the cord structures up from the floor I encountered more dilated veins. All of these were small this vessels. None of them were large. But they were quite extensive in bled profusely when cut. I decided to change my approach and dissect around the cord from the lateral aspect. I was able to slowly separate stab some of the cord structures away from the external oblique. However reached a point where I kept running into bridging veins. I thyroid tried dissecting on the outside of the external oblique but this resulted in knee encountering the same rich vascular network coming from a fatty mass. The fat was normal in appearance and quite soft. It did not appear to be sarcomatous. Rather it just felt like a Rich leave vascularized lipoma. Re- evaluating I decided that to continue to proceed was probably yusuf. I could not lift the cord structures off the floor safely and I suspected that there was a rich network of veins coming up through anyhow from the preperitoneal space. I really could not do any dissection in the area of the internal ring because of the vascular network. I was only able to free it anteriorly. I therefore abandoned any further dissection for fear of encountering bleeding that I would find difficult to control and would have to do a major vascular procedure to bring venous bleeding under control. Meticulous hemostasis was achieved mostly with suture ligation with 3 0 silk. The external oblique was reapproximated with interrupted [id number] 3 0 Vicryl. The subcu was closed with interrupted 3 0 Vicryl and skin was closed running 4 0 Vicryl subcuticular stitch and Steri-Strips. Of note, the dissection that I will intact across at least a portion of the floor. I could not tell laterally which was my concern in part for recurrence. I also could not tell in the area of the internal ring whether there was any protrusion of fat through this area. Complications: none Post-operative Condition: stable Disposition: PACU Plan for aftercare: Will discuss with patient MRI or other study to evaluate the feeding vessels of this lesion to see if there is any need for embolization.
[2019-12-22] MEDS: OXYCODONE/ACETAMINOPHEN 5/325 TABLET 1 TAB PO (10:08)
--- NOTE | 2019-12-22 10:41 | SUR.PHASEII ---
pt dsg observed to be c/d/i. pt sitting up in bed drinking coffee and eating a snack. Pt denies any nausea. pt awaiting arrival of significant other. Bed in lowest position and call light given to pt. pt appears comfortable at this time.
--- NOTE | 2019-12-22 10:58 | SUR.PHASEII ---
Assumed care from Kenia, dressing remained, c/d/i. arrived, d/c instructions discussed, both voiced an understanding, then she went to product picker medication from pharmacy.
--- NOTE | 2019-12-22 11:33 | SUR.PHASEII ---
returned, pt ready to gop, left in stable condition.
== END 2019-12-22 11:15 | disposition home or self-care (01) ==
PROVIDERS: PCP Internal Medicine; Referring Provider Specialist; Visit Provider Specialist
PROC: (CPT 49520; principal; 2019-12-22 07:45)
DX: R19.04 Left lower quadrant abdominal swelling, mass and lump (principal); Z87.19 Personal history of other diseases of the digestive system; Z98.890 Other specified postprocedural states; I86.8 Varicose veins of other specified sites
CPT/HCPCS: 49520; J0690; J1100; J2250; J2405; J2704; J3010

== ENCOUNTER → 2020-04-15 08:22 | Outpatient (CLI) | payer OTHER, MEDICAID, SELFPAY ==
[2020-04-16 09:02] LABS: COVID19 Sendout Not Detected (Not Detected)
== END ==
PROVIDERS: PCP Internal Medicine; Visit Provider Physician Assistant
DX: Z11.59 Encounter for screening for other viral diseases (principal)
CPT/HCPCS: 87635

== ENCOUNTER → 2020-12-02 08:48 | Outpatient (CLI) | payer OTHER, MEDICAID, SELFPAY ==
[2020-12-02 10:17] LABS: Add Manual Diff / Slide Review NO; Basophils Absolute Auto 100 /uL (0-100); Basophils Percent Auto 1.1 % (0-2); Eosinophils Absolute Auto 200 /uL (0-450); Eosinophils Percent Auto 2.9 % (2-4); Hemoglobin 14.4 g/dL (13.5-17.5); Lymphocytes Absolute Auto 2600 /uL (1100-4500); Lymphocytes Percent Auto 47.7 % (25-40); Mean Corpuscular Hemoglobin 32.8 PG (26-34); Mean Corpuscular Volume 93.8 fL (80-100); Monocytes Absolute Auto 300 /uL (0-900); Monocytes Percent Auto 4.8 % (3-14); Neutrophils Absolute Auto 2400 /uL (1500-7000); Neutrophils Percent Auto 43.5 % (50-75); Platelet Count 186 X10^3/uL (150-400); Red Blood Cell Count 4.37 X10^6/uL (4.5-5.9); Red Cell Distribution Width 13.7 % (11.6-14.8); White Blood Cell Count 5.5 X10^3/uL (4.5-11.0)
[2020-12-02 11:02] LABS: Alanine Aminotransferase 44 IU/L (<50); Albumin 4.4 g/dL (3.5-5.0); Albumin Globulin Ratio 1.4 (1.0-2.8); Alkaline Phosphatase 87 U/L (38-126); Aspartate Aminotransferase 50 IU/L (17-59); BUN Creatinine Ratio 13.4 (6-22); Bilirubin Total 0.6 mg/dL (0.2-1.3); Blood Urea Nitrogen 20 mg/dL (9-20); Calcium 10.3 mg/dL (8.4-10.2); Carbon Dioxide 29 mmol/L (22-32); Chloride 100 mmol/L (98-107); Estimated Glomerular Filt Rate 49.7 mL/min (>60); Globulin 3.1 g/dL (1.7-4.1); Glucose 97 mg/dL (70-100); HDL Cholesterol 53 mg/dL (40-60); HEMOLYSIS < 15 (0-50); Potassium 4.4 mmol/L (3.4-5.1); Sodium 138 mmol/L (137-145); Total Protein 7.5 g/dL (6.3-8.2); Triglycerides 508 mg/dL (35-150)
[2020-12-02 11:14] LABS: Cholesterol 374 mg/dL (140-199)
[2020-12-02 11:27] LABS: Prostate Specific Antigen 0.697 ng/mL (0.10-4.00)
== END ==
PROVIDERS: PCP Physician Assistant; Referring Provider Physician Assistant; Visit Provider Physician Assistant
DX: Z00.00 Encounter for general adult medical examination without abnormal findings (principal)
CPT/HCPCS: 36415; 80053; 80061; 84153; 85025

== ENCOUNTER → 2020-12-22 09:16 | Outpatient (CLI) | payer OTHER, MEDICAID, SELFPAY ==
[2020-12-22 11:37] LABS: Alanine Aminotransferase 19 IU/L (<50); Albumin 4.5 g/dL (3.5-5.0); Albumin Globulin Ratio 1.4 (1.0-2.8); Alkaline Phosphatase 65 U/L (38-126); Aspartate Aminotransferase 32 IU/L (17-59); BUN Creatinine Ratio 11.4 (6-22); Bilirubin Total 0.7 mg/dL (0.2-1.3); Blood Urea Nitrogen 16 mg/dL (9-20); Calcium 9.4 mg/dL (8.4-10.2); Carbon Dioxide 29 mmol/L (22-32); Chloride 105 mmol/L (98-107); Estimated Glomerular Filt Rate 53.2 mL/min (>60); Globulin 3.3 g/dL (1.7-4.1); Glucose 94 mg/dL (70-100); HEMOLYSIS < 15 (0-50); Potassium 4.3 mmol/L (3.4-5.1); Sodium 138 mmol/L (137-145); Total Protein 7.8 g/dL (6.3-8.2)
[2020-12-24 05:50] LABS: Parathyroid Hormone Int 86 pg/mL (15-65)
== END ==
PROVIDERS: PCP Physician Assistant; Referring Provider Physician Assistant; Visit Provider Physician Assistant
DX: E83.52 Hypercalcemia (principal)
CPT/HCPCS: 36415; 80053; 83970

== ENCOUNTER → 2021-01-17 12:42 | Outpatient (CLI) | payer OTHER, MEDICAID, SELFPAY ==
[2021-01-17 14:20] LABS: Calcium 9.9 mg/dL (8.4-10.2)
== END ==
PROVIDERS: PCP Physician Assistant; Referring Provider Physician Assistant; Visit Provider Physician Assistant
DX: E83.52 Hypercalcemia (principal)
CPT/HCPCS: 36415; 82310

== ENCOUNTER → 2021-01-21 10:44 | Outpatient (CLI) | payer OTHER, MEDICAID, SELFPAY ==
--- NOTE | 2021-01-21 10:50 | DI.US.S_ITS ---
PROCEDURE: US RENAL COMPLETE INDICATIONS: CHRONIC KIDNY DISEASE STAGE 3 TECHNIQUE: Real-time scanning was performed of the kidneys and bladder, with image documentation. COMPARISON: None. FINDINGS: Kidneys: Both kidneys are normal in size and appearance. There is a tiny simple cyst in the left kidney measuring 1.1 centimeters. No shadowing calculus or hydronephrosis. Bladder: Normal appearance of the urinary bladder. Prevoid volume is 69 milliliters. Postvoid volume is 5 milliliters. No bladder wall thickening or bladder mass. Miscellaneous: No free pelvic fluid. IMPRESSION: Mild prostatomegaly. Normal appearance of the urinary bladder and kidneys. Dictated by: Ulises Haddad M.D. on 01/21/2021 at 14:03 Approved by: Ulises Haddad M.D. on 01/21/2021 at 14:14
[2021-01-21 11:29] LABS: Bacteria Urine None Seen; RBC Urine None Seen (0-5/HPF); WBC Urine None Seen (0-5/HPF)
[2021-01-21 11:43] LABS: Appearance Urine UA CLEAR; Bilirubin Urine UA NEGATIVE (NEGATIVE); Color Urine UA YELLOW; Glucose Urine UA TRACE g/dL (Negative); Ketones Urine UA NEGATIVE (NEGATIVE); Leukocyte Esterase Urine UA NEGATIVE (NEGATIVE); Nitrite Urine UA NEGATIVE (Negative); Occult Blood Urine UA NEGATIVE (Negative); Protein Urine UA NEGATIVE (Negative); Specific Gravity Urine UA 1.015 (1.000-1.035); Urobilinogen Urine UA 0.2 E.U./dL (0.2); pH Urine UA 6.5 (4.5-8.0)
[2021-01-21 11:53] LABS: Culture Indicated Urine Cult Not Indicated; Urine Comments Microscopic Normal
[2021-01-21 12:23] LABS: Creatinine Urine Random 120.2 mg/dL
[2021-01-21 12:26] LABS: Protein (Total) Urine Random < 5 mg/dL (0-12); Protein Creatinine Ratio Urine 0.04 GRAM/24H
[2021-01-22 15:02] LABS: Ionized Calcium 5.1 mg/dL (4.5-5.6)
== END ==
PROVIDERS: PCP Physician Assistant; Referring Provider Physician Assistant; Visit Provider Physician Assistant
DX: N18.31 Chronic kidney disease, stage 3a (principal); E83.52 Hypercalcemia; N40.0 Benign prostatic hyperplasia without lower urinary tract symptoms
CPT/HCPCS: 36415; 76770; 81001; 82330; 82570; 84156

== ENCOUNTER → 2021-02-18 14:17 | Outpatient (CLI) | payer OTHER, MEDICAID, SELFPAY ==
[2021-02-18 16:22] LABS: Albumin 4.4 g/dL (3.5-5.0); BUN Creatinine Ratio 15.2 (6-22); Blood Urea Nitrogen 17 mg/dL (9-20); Calcium 9.5 mg/dL (8.4-10.2); Carbon Dioxide 28 mmol/L (22-32); Chloride 102 mmol/L (98-107); Estimated Glomerular Filt Rate > 60.0 mL/min (>60); Glucose 92 mg/dL (70-100); HEMOLYSIS < 15 (0-50); Phosphorous 3.4 mg/dL (2.5-4.5); Sodium 138 mmol/L (137-145)
[2021-02-19 07:10] LABS: HBsAg Screen Negative (Negative); Hepatitis A Antibody IgM Negative (Negative); Hepatitis B Core Antibody IgM Negative (Negative); Hepatitis C Antibody 0.1 s/co ratio (0.0-0.9)
[2021-02-19 18:11] LABS: DNA (DS) Antibody 2 IU/mL (0-9)
[2021-02-21 16:15] LABS: ANA Screen, IFA Negative (.)
== END ==
PROVIDERS: PCP Physician Assistant; Referring Provider Physician Assistant; Visit Provider Physician Assistant
DX: N18.31 Chronic kidney disease, stage 3a (principal); Z20.2 Contact with and (suspected) exposure to infections with a predominantly sexual mode of transmission
CPT/HCPCS: 36415; 80069; 80074; 82610; 86038; 86225

== ENCOUNTER → 2021-02-22 10:08 | Outpatient (CLI) | payer OTHER, MEDICAID, SELFPAY ==
[2021-02-22 14:57] LABS: Urine N gonorrhoeae NOT DETECTED
[2021-02-22 15:03] LABS: Urine Chlamydia NOT DETECTED
== END ==
PROVIDERS: PCP Physician Assistant; Referring Provider Physician Assistant; Visit Provider Physician Assistant
DX: Z20.2 Contact with and (suspected) exposure to infections with a predominantly sexual mode of transmission (principal)
CPT/HCPCS: 87491; 87591

== ENCOUNTER → 2021-04-25 11:29 | Outpatient (CLI) | payer OTHER, MEDICAID, SELFPAY ==
[2021-04-25 12:13] LABS: Add Manual Diff / Slide Review NO; Basophils Absolute Auto 0 /uL (0-100); Basophils Percent Auto 0.8 % (0-2); Eosinophils Absolute Auto 100 /uL (0-450); Eosinophils Percent Auto 2.1 % (2-4); Hematocrit 42.1 % (41-53); Hemoglobin 14.8 g/dL (13.5-17.5); Lymphocytes Absolute Auto 1900 /uL (1100-4500); Lymphocytes Percent Auto 42.3 % (25-40); Mean Corpuscular Hemoglobin 31.9 PG (26-34); Monocytes Absolute Auto 300 /uL (0-900); Monocytes Percent Auto 6.6 % (3-14); Neutrophils Absolute Auto 2100 /uL (1500-7000); Neutrophils Percent Auto 48.2 % (50-75); Platelet Count 186 X10^3/uL (150-400); Red Blood Cell Count 4.63 X10^6/uL (4.5-5.9); Red Cell Distribution Width 11.7 % (11.6-14.8); White Blood Cell Count 4.4 X10^3/uL (4.5-11.0)
[2021-04-25 12:22] LABS: Alanine Aminotransferase 22 IU/L (<50); Albumin 4.1 g/dL (3.5-5.0); Albumin Globulin Ratio 1.5 (1.0-2.8); Alkaline Phosphatase 61 U/L (38-126); Aspartate Aminotransferase 23 IU/L (17-59); BUN Creatinine Ratio 14.4 (6-22); Bilirubin Total 0.6 mg/dL (0.2-1.3); Blood Urea Nitrogen 15 mg/dL (9-20); Calcium 9.4 mg/dL (8.4-10.2); Carbon Dioxide 30 mmol/L (22-32); Chloride 101 mmol/L (98-107); Estimated Glomerular Filt Rate > 60.0 mL/min (>60); Globulin 2.8 g/dL (1.7-4.1); Glucose 93 mg/dL (70-100); HEMOLYSIS < 15 (0-50); Potassium 4.3 mmol/L (3.4-5.1); Sodium 137 mmol/L (137-145); Total Protein 6.9 g/dL (6.3-8.2)
[2021-04-26 05:41] LABS: Parathyroid Hormone Int 46 pg/mL (15-65)
[2021-04-26 08:16] LABS: Ionized Calcium 5.1 mg/dL (4.5-5.6)
== END ==
PROVIDERS: PCP Physician Assistant; Referring Provider Physician Assistant; Visit Provider Physician Assistant
DX: N18.31 Chronic kidney disease, stage 3a (principal)
CPT/HCPCS: 36415; 80053; 82330; 83970; 85025

== ENCOUNTER → 2021-12-16 11:17 | Outpatient (CLI) | payer OTHER, MEDICAID, SELFPAY ==
--- NOTE | 2021-12-16 11:18 | DI.RAD.S_ITS ---
PROCEDURE: XR LUMBAR SPINE MIN 4V INDICATIONS: BACK PAIN TECHNIQUE: 5 views of the lumbar spine were acquired, including bilateral oblique views. COMPARISON: [facility], CR, XR LUMBAR SPINE 2-3V, 09/19/2018, 16:18. FINDINGS: Bones: 5 nonrib-bearing vertebrae are present. There is normal bony alignment. Mild convex right thoracolumbar spine curvature. No vertebral body compression fractures. No suspicious bony lesions. Mild degenerative disc changes noted throughout the lumbar spine. Mild L4-L5 and L5-S1 facet hypertrophy. Soft tissues: Overlying bowel gas pattern is normal. No suspicious soft tissue calcifications. Oblique images: No pars defects. IMPRESSION: 1. Multilevel degenerative disc disease. 2. Multilevel facet arthropathy. 3. No fracture. No acute osseous lesion. If symptoms and/or clinical suspicion for pathology persists, evaluation with MRI should be considered for further assessment. Dictated by: Shannon Turner MD, PhD on 12/16/2021 at 12:23 Approved by: Shannon Turner MD, PhD on 12/16/2021 at 12:24
== END ==
PROVIDERS: PCP Physician Assistant; Referring Provider Physical Medicine & Rehabilitation; Visit Provider Physical Medicine & Rehabilitation
DX: M51.36 Other intervertebral disc degeneration, lumbar region (principal); M47.816 Spondylosis without myelopathy or radiculopathy, lumbar region; M54.9 Dorsalgia, unspecified; M47.817 Spondylosis without myelopathy or radiculopathy, lumbosacral region
CPT/HCPCS: 72110

== ENCOUNTER → 2022-01-09 10:01 | Outpatient (CLI) | payer OTHER, MEDICAID, SELFPAY ==
[2022-01-09 13:21] LABS: COVID19 -Nasal RAPID Negative (Negative)
== END ==
PROVIDERS: PCP Physician Assistant; Visit Provider Physical Medicine & Rehabilitation
DX: Z20.822 Contact with and (suspected) exposure to COVID-19 (principal)
CPT/HCPCS: 87635; C9803

== ENCOUNTER 2022-01-10 13:46 | Outpatient (CLI) | payer OTHER, MEDICAID, SELFPAY ==
[2022-01-10] VITALS (10 sets, daily range): BP systolic 121–140; BP diastolic 75–85; PULSE 66–86; RESP 12–30; TEMP 36.4; O2SAT 96–99
--- NOTE | 2022-01-10 13:47 | DI.RAD.S_ITS ---
PROCEDURE: PAIN L/S FACET INJ/BLK 1ST LYNDON COMPARISON: [facility], MR, MR LUMBAR SPINE WITH/WITHOUT CONTRAST, 09/30/2018, 11:23. [facility], CR, XR LUMBAR SPINE 2-3V, 09/19/2018, 16:18. INDICATIONS: SPONDYLOSIS FINDINGS: Fluoroscopic spot filming was performed to verify placement of spinal needles on both sides at the L4, L5, and S1 levels, as labeled on the films. Appropriate location of the needle tips was confirmed by injection of iodinated contrast. IMPRESSION: Intraprocedural examination demonstrating appropriate positions of the needles. Dictated by: Zac Ambrocio M.D. on 01/10/2022 at 15:57 Approved by: Zac Ambrocio M.D. on 01/10/2022 at 15:57
--- NOTE | 2022-01-10 14:04 | PC.NURSE ---
Patient lives in his van that is parked at the hospital states that he is self sustained and can stay at the hospital. Educated that dues to the sedation he should not drive for 24hours, no drinking and or making financial decisions. Dr Galvan aware.
[2022-01-10] MEDS: LIDOCAINE 1% 20 ML 5 ML INJ (14:23)
[2022-01-10] MEDS: IOPAMIDOL 15 ML VIAL 3 ML INJ (14:23)
[2022-01-10] MEDS: BUPIVACAINE 0.5% (PF) VIAL 5 ML INJ (14:24)
[2022-01-10] MEDS: MIDAZOLAM 2 MG/2 ML VIAL 4 MG IV (14:25)
--- NOTE | 2022-01-10 14:42 | PM.PROC.IR.1 ---
Date/Time/Diagnoses Date of procedure: 01/10/22 Time of procedure: 14:42 Pre-procedure diagnosis: 1. FACET ARTHROPATHY Post-procedure diagnosis: same Procedure Notes Procedure: 1. BILATERAL- L4, L5 and S1 DIAGNOSTIC MB BLOCKS with LA Anesthetic Indications: Kalia is referred by ZARINA Yu for treatment of Bilateral Axial LBP. Physician: Chidi Edmonds Total Fluoroscopy time (seconds): 11 Total sedation minutes: 16 Complications: none Procedure in detail & Post-procedure care: DESCRIPTION OF PROCEDURE Fluoroscopically guided, contrast-controlled bilateral L4, L5 and S1 medial branch blocks with 0.5cc of 0.5% Marcaine. Following review of allergy and review of potential side effects and complications, including, but not necessarily limited to, infection, allergic reaction, local tissue breakdown, nerve injury, paralysis, stroke and possible , the patient indicated that the patient understood and agreed to proceed. An informed consent document was signed by the patient, witnessed by a nurse, and placed in the patient's chart. After review of previous anaesthesic history and IV conscious sedation the patient was deemed safe to proceed with today's procedure with IV conscious sedation as ASA class II designation. Safety time-out was performed to confirm patient ID, procedure to be performed and site of procedure. IV sedation was accomplished with a combination of 4mg of Versed was administered by the RN after DO order, titrated to patient comfort during the course of the procedure while the patient remained responsive to all verbal commands In the prone position, following sterile prep and drape of the lumbar region, the right L4, L5 and S1 anatomical location of the medial branch of the dorsal ramus was identified fluoroscopically. Subsequently an anesthetic skin wheal using 1% lidocaine solution was initiated at each of the anatomical spots. Subsequently then a 22-gauge 3.5-inch spinal needle was atraumatically introduced and advanced under fluoroscopic guidance at each of the corresponding sites at the right L4, L5 and S1 MB. After negative aspiration, 0.2cc of Isovue 200 was injected, confirming placement without vascular or intrathecal uptake. Subsequently then 0.5cc of 0.5% Marcaine solution was injected at each of the corresponding sites at the right L4, L5 and S1 medial branch locations. The identical procedure was replicated on the left. The patient tolerated the procedure well without signs or symptoms of complications prior to transfer to the recovery area continued monitoring without incident. Post-procedure, the patient was monitored initiating provocative activities to measure the amount of relief from block of the facetogenic pain. The patient reported a VAS of 9 prior to the procedure and a post-procedure VAS of 1. It has been a pleasure to assist in the diagnostic and therapeutic care of your patient. POST OP INSTRUCTIONS The patient was provided with a Pain Log to complete over the next several hours and subsequent days prior to the patient's follow up with the ordering physician. If the patient has sole conforming machine operator relief to the solution applied, then they may be a candidate for medial branch rhizotomy. The patient is aware, was provided, once again, with a Pain Log and will follow up with the referring physician for review and clinical correlation
== END 2022-01-10 14:53 | disposition home or self-care (01) ==
LOC: RAD 13:47
PROVIDERS: PCP Physician Assistant; Referring Provider Physical Medicine & Rehabilitation; Visit Provider Physical Medicine & Rehabilitation
DX: M47.816 Spondylosis without myelopathy or radiculopathy, lumbar region (principal); M47.817 Spondylosis without myelopathy or radiculopathy, lumbosacral region
CPT/HCPCS: 64493; 64494; 99152; J2250

== ENCOUNTER → 2022-02-08 09:30 | Outpatient (CLI) | payer OTHER, MEDICAID, SELFPAY ==
[2022-02-08 10:40] LABS: Add Manual Diff / Slide Review NO; Basophils Absolute Auto 0 /uL (0-100); Eosinophils Absolute Auto 100 /uL (0-450); Eosinophils Percent Auto 3.1 % (2-4); Hematocrit 41.2 % (41-53); Hemoglobin 14.7 g/dL (13.5-17.5); Lymphocytes Absolute Auto 1600 /uL (1100-4500); Lymphocytes Percent Auto 37.9 % (25-40); Mean Corpuscular HGB Conc 35.8 % (30-36); Mean Corpuscular Hemoglobin 32.7 PG (26-34); Mean Corpuscular Volume 91.3 fL (80-100); Monocytes Absolute Auto 200 /uL (0-900); Monocytes Percent Auto 5.8 % (3-14); Neutrophils Absolute Auto 2200 /uL (1500-7000); Neutrophils Percent Auto 52.2 % (50-75); Platelet Count 182 X10^3/uL (150-400); Red Blood Cell Count 4.51 X10^6/uL (4.5-5.9); Red Cell Distribution Width 12.4 % (11.6-14.8); White Blood Cell Count 4.2 X10^3/uL (4.5-11.0)
[2022-02-08 11:04] LABS: Alanine Aminotransferase 21 IU/L (<50); Albumin 3.9 g/dL (3.5-5.0); Albumin Globulin Ratio 1.5 (1.0-2.8); Alkaline Phosphatase 64 U/L (38-126); Aspartate Aminotransferase 20 IU/L (17-59); BUN Creatinine Ratio 19.1 (6-22); Bilirubin Total 0.4 mg/dL (0.2-1.3); Blood Urea Nitrogen 17 mg/dL (9-20); Carbon Dioxide 29 mmol/L (22-32); Chloride 104 mmol/L (98-107); Cholesterol 209 mg/dL (140-199); Estimated Glomerular Filt Rate > 60 mL/min (>60); Globulin 2.6 g/dL (1.7-4.1); Glucose 97 mg/dL (70-100); HDL Cholesterol 43 mg/dL (40-60); HEMOLYSIS < 15 (0-50); LDL Cholesterol Calculated 128 mg/dL (<100); Potassium 4.6 mmol/L (3.4-5.1); Sodium 138 mmol/L (137-145); Total Protein 6.5 g/dL (6.3-8.2); Triglycerides 190 mg/dL (35-150)
[2022-02-08 11:32] LABS: TSH w/ Reflex to FT4 4.05 uIU/mL (0.47-4.68)
[2022-02-09 06:00] LABS: PSA, Total 0.7 ng/mL (0.0-4.0)
[2022-02-09 13:45] LABS: Calcium 9.3 mg/dL (8.7-10.2); Parathyroid Hormone, Intact 34 pg/mL (15-65)
== END ==
PROVIDERS: PCP Family Medicine; Referring Provider Family Medicine; Visit Provider Family Medicine
DX: E83.52 Hypercalcemia (principal); E78.2 Mixed hyperlipidemia; N25.81 Secondary hyperparathyroidism of renal origin; R53.83 Other fatigue; R35.1 Nocturia; R39.11 Hesitancy of micturition
CPT/HCPCS: 36415; 80053; 80061; 82310; 83970; 84153; 84154; 84443; 85025

== ENCOUNTER 2022-05-09 13:00 | Outpatient (CLI) | payer OTHER, MEDICAID, SELFPAY ==
[2022-05-09] VITALS (8 sets, daily range): BP systolic 119–136; BP diastolic 77–94; PULSE 68–78; RESP 12–20; TEMP 36.3; O2SAT 97–100
--- NOTE | 2022-05-09 13:01 | DI.RAD.S_ITS ---
PROCEDURE: PAIN L/S FACET INJ/BLK 1ST LYNDON COMPARISON: [facility], , PAIN L/S FACET INJ/BLK 1ST LYNDON, 01/10/2022, 14:22. INDICATIONS: SPONDYLOSIS FINDINGS: Fluoroscopic spot filming was performed to verify placement of spinal needles on both sides at the L4, L5, and S1 levels, as labeled on the films. Appropriate location of the needle tips was confirmed by injection of iodinated contrast. IMPRESSION: Intraprocedural examination demonstrating appropriate positions of the needles. Dictated by: Zac Ambrocio M.D. on 05/09/2022 at 14:07 Approved by: Zac Ambrocio M.D. on 05/09/2022 at 14:07
[2022-05-09] MEDS: MIDAZOLAM 2 MG/2 ML VIAL 4 MG IV (13:50)
[2022-05-09] MEDS: BUPIVACAINE 0.5% MDV 2 ML SUBCUT (13:54)
[2022-05-09] MEDS: IOPAMIDOL 15 ML VIAL 3 ML INJ (13:54)
[2022-05-09] MEDS: LIDOCAINE 1% 20 ML 5 ML INJ (13:54)
--- NOTE | 2022-05-09 14:06 | PM.PROC.IR.1 ---
Date/Time/Diagnoses Date of procedure: 05/09/22 Time of procedure: 14:07 Pre-procedure diagnosis: 1. FACET ARTHROPATHY Post-procedure diagnosis: same Procedure Notes Procedure: 1. BILATERAL- L4, L5 and S1 DIAGNOSTIC MB BLOCKS with SA Anesthetic Indications: Kalia is referred by BELTRAN Rivers for treatment of Bilateral Axial LBP. Physician: Chidi Edmonds Total Fluoroscopy time (seconds): 13 Total sedation minutes: 13 Complications: none Procedure in detail & Post-procedure care: DESCRIPTION OF PROCEDURE Fluoroscopically guided, contrast-controlled bilateral L4, L5 and S1 medial branch blocks with 0.5cc of 2% Lidocaine. Following review of allergy and review of potential side effects and complications, including, but not necessarily limited to, infection, allergic reaction, local tissue breakdown, nerve injury, paralysis, stroke and possible , the patient indicated that the patient understood and agreed to proceed. An informed consent document was signed by the patient, witnessed by a nurse, and placed in the patient's chart. After review of previous anaesthesic history and IV conscious sedation the patient was deemed safe to proceed with today's procedure with IV conscious sedation as ASA class II designation. Safety time-out was performed to confirm patient ID, procedure to be performed and site of procedure. IV sedation was accomplished with a combination of 4mg of Versed was administered by the RN after DO order, titrated to patient comfort during the course of the procedure while the patient remained responsive to all verbal commands In the prone position, following sterile prep and drape of the lumbar region, the right L4, L5 and S1 anatomical location of the medial branch of the dorsal ramus was identified fluoroscopically. Subsequently an anesthetic skin wheal using 1% lidocaine solution was initiated at each of the anatomical spots. Subsequently then a 22-gauge 3.5-inch spinal needle was atraumatically introduced and advanced under fluoroscopic guidance at each of the corresponding sites at the right L4, L5 and S1 MB. After negative aspiration, 0.2cc of Isovue 200 was injected, confirming placement without vascular or intrathecal uptake. Subsequently then 0.5cc of 2% Lidocaine solution was injected at each of the corresponding sites at the right L4, L5 and S1 medial branch locations. The identical procedure was replicated on the left. The patient tolerated the procedure well without signs or symptoms of complications prior to transfer to the recovery area continued monitoring without incident. Post-procedure, the patient was monitored initiating provocative activities to measure the amount of relief from block of the facetogenic pain. The patient reported a VAS of 7 prior to the procedure and a post-procedure VAS of 1. It has been a pleasure to assist in the diagnostic and therapeutic care of your patient. POST OP INSTRUCTIONS The patient was provided with a Pain Log to complete over the next several hours and subsequent days prior to the patient's follow up with the ordering physician. If the patient has customer engagement specialist relief to the solution applied, then they may be a candidate for medial branch rhizotomy. The patient is aware, was provided, once again, with a Pain Log and will follow up with the referring physician for review and clinical correlation
== END 2022-05-09 14:27 | disposition home or self-care (01) ==
PROVIDERS: PCP Family Medicine; Referring Provider Physical Medicine & Rehabilitation; Visit Provider Physical Medicine & Rehabilitation
DX: M47.816 Spondylosis without myelopathy or radiculopathy, lumbar region (principal); M47.817 Spondylosis without myelopathy or radiculopathy, lumbosacral region
CPT/HCPCS: 64493; 64494; 99152; J2250

== ENCOUNTER → 2022-11-15 13:45 | Outpatient (CLI) | payer OTHER, MEDICAID, SELFPAY ==
[2022-11-15 14:12] LABS: Add Manual Diff / Slide Review NO; Basophils Absolute Auto 0 /uL (0-100); Basophils Percent Auto 0.6 % (0-2); Eosinophils Absolute Auto 100 /uL (0-450); Eosinophils Percent Auto 2.7 % (2-4); Hematocrit 43.7 % (41-53); Hemoglobin 15.2 g/dL (13.5-17.5); Lymphocytes Absolute Auto 2300 /uL (1100-4500); Lymphocytes Percent Auto 45.3 % (25-40); Mean Corpuscular HGB Conc 34.7 % (30-36); Mean Corpuscular Hemoglobin 32.2 PG (26-34); Mean Corpuscular Volume 92.8 fL (80-100); Monocytes Absolute Auto 300 /uL (0-900); Monocytes Percent Auto 5.8 % (3-14); Neutrophils Absolute Auto 2300 /uL (1500-7000); Neutrophils Percent Auto 45.6 % (50-75); Platelet Count 222 X10^3/uL (150-400); Red Blood Cell Count 4.71 X10^6/uL (4.5-5.9); Red Cell Distribution Width 12.4 % (11.6-14.8); White Blood Cell Count 5.1 X10^3/uL (4.5-11.0)
[2022-11-15 14:22] LABS: Alanine Aminotransferase 23 IU/L (<50); Albumin 4.4 g/dL (3.5-5.0); Albumin Globulin Ratio 1.5 (1.0-2.8); Alkaline Phosphatase 82 U/L (38-126); Aspartate Aminotransferase 24 IU/L (17-59); BUN Creatinine Ratio 18.1 (6-22); Bilirubin Total 0.6 mg/dL (0.2-1.3); Blood Urea Nitrogen 21 mg/dL (9-20); Calcium 9.2 mg/dL (8.4-10.2); Carbon Dioxide 28 mmol/L (22-32); Chloride 101 mmol/L (98-107); Cholesterol 238 mg/dL (140-199); Estimated Glomerular Filt Rate > 60 mL/min (>60); Glucose 98 mg/dL (70-100); HDL Cholesterol 41 mg/dL (40-60); HEMOLYSIS < 15 (0-50); LDL Cholesterol Calculated 138 mg/dL (<100); Potassium 3.9 mmol/L (3.4-5.1); Sodium 135 mmol/L (137-145); Total Protein 7.4 g/dL (6.3-8.2); Triglycerides 297 mg/dL (35-150)
[2022-11-15 14:53] LABS: Prostate Specific Antigen 0.518 ng/mL (0.10-4.00)
[2022-11-15 14:54] LABS: Thyroid Stimulating Hormone 6.84 uIU/mL (0.47-4.68)
== END ==
PROVIDERS: PCP Nurse Practitioner Family; Referring Provider Nurse Practitioner Family; Visit Provider Nurse Practitioner Family
DX: R19.09 Other intra-abdominal and pelvic swelling, mass and lump (principal); N40.1 Benign prostatic hyperplasia with lower urinary tract symptoms; E78.5 Hyperlipidemia, unspecified; G47.00 Insomnia, unspecified; G47.33 Obstructive sleep apnea (adult) (pediatric); F32.4 Major depressive disorder, single episode, in partial remission; D72.819 Decreased white blood cell count, unspecified
CPT/HCPCS: 36415; 80053; 80061; 84153; 84443; 85025

== ENCOUNTER → 2022-11-27 11:16 | Outpatient (CLI) | payer OTHER, MEDICAID, SELFPAY ==
--- NOTE | 2022-11-27 11:17 | DI.MRI.S_ITS ---
PROCEDURE: MR LUMBAR SPINE WO CON INDICATIONS: PROGRESSIVE LOW BACK PAIN TECHNIQUE: Noncontrast sagittal T1 spin echo and T2 fast echo, sagittal STIR, and T2 fast spin echo through the lumbar spine. In cases with scoliosis, additional coronal T2 fast spin echo may be performed. COMPARISON: [facility], CR, XR LUMBAR SPINE MIN 4V, 12/16/2021, 11:15. Outside Film, MR, MR LUMBAR SPINE WITH/WITHOUT CONTRAST, 09/30/2018, 11:23. FINDINGS: Image quality: Excellent. Alignment and Curvature: There is normal bony alignment. Bone Marrow: There is no marrow edema. No acute vertebral body compression fractures. Spinal Cord: Conus medullaris terminates at the L1 level. Visualized cord demonstrates normal signal and size. Paraspinous Soft Tissues: No paravertebral masses. T12-L1: Normal appearance. L1-L2: Loss of disc signal is seen. No significant disc bulge, canal stenosis or neural foraminal narrowing. L2-L3: Loss of disc signal. Mild broad-based disc bulge and bilateral facet arthrosis is seen. No significant canal stenosis or neural foraminal narrowing. L3-L4: Loss of disc height and disc signal. Broad-based disc bulge and bilateral facet arthrosis with hypertrophy of ligamentum flavum is seen causing moderate central canal stenosis and bilateral neural foraminal narrowing. L4-L5: Modic type 2 degenerative endplate changes are seen. Broad-based disc bulge and bilateral facet arthrosis is seen causing [id number] central canal stenosis and moderate to severe bilateral neural foraminal narrowing. L5-S1: Loss of disc height and disc signal is seen. Diffuse disc bulge and bilateral facet arthrosis is noted. No significant central canal stenosis. Vfqr-[id number] bilateral neural foraminal narrowing is seen. IMPRESSION: 1. No marrow edema. No acute compression fracture or spondylolisthesis. 2. Degenerative disc disease throughout lumbar spine causing various degrees of central canal stenosis and bilateral neural foraminal narrowing more notably at L3-4 and L4-5 levels as described in detail above. Dictated by: Bj Mchugh M.D. on 11/27/2022 at 13:16 Approved by: Bj Mchugh M.D. on 11/27/2022 at 13:18
== END ==
PROVIDERS: PCP Nurse Practitioner Family; Referring Provider Physical Medicine & Rehabilitation; Visit Provider Physical Medicine & Rehabilitation
DX: M51.26 Other intervertebral disc displacement, lumbar region (principal); M47.816 Spondylosis without myelopathy or radiculopathy, lumbar region; M48.061 Spinal stenosis, lumbar region without neurogenic claudication
CPT/HCPCS: 72148

== ENCOUNTER → 2022-12-13 10:26 | Outpatient (CLI) | payer OTHER, MEDICAID, SELFPAY ==
--- NOTE | 2022-12-13 | DI.US.S_ITS ---
PROCEDURE: US ABDOMEN LIMITED INDICATIONS: LEFT GROIN LUMP TECHNIQUE: Real-time focused scanning was performed of the abdomen, with image documentation. COMPARISON: None. FINDINGS: There is no evidence of a hernia within the left inguinal region. Dilated superficial venous vessels measuring 10 mm are present in the left inguinal region. IMPRESSION: 1. No evidence of left inguinal hernia. 2. Dilated superficial venous vessels, possibly related to a varix. Dictated by: Trey Gallo M.D. on 12/13/2022 at 11:42 Transcribed by: KARAN on 12/13/2022 at 11:43 Approved by: Trey Gallo M.D. on 12/13/2022 at 16:15
--- NOTE | 2022-12-13 | DI.CT.S_ITS ---
PROCEDURE: CT ABDOMEN PELVIS W CON INDICATIONS: Other intra-abdominal and pelvic swelling, mass and lump TECHNIQUE: After the administration of oral and intravenous contrast, axial sections were acquired from the lung bases to the pubic symphysis. Coronal and sagittal reformats were performed. For radiation dose reduction, the following was used: automated exposure control, adjustment of mA and/or kV according to patient size. COMPARISON:[facility], CT, CT PELVIS W CON, 12/12/2019, 11:29. [facility], MR, MR LUMBAR SPINE WO CON, 11/27/2022, 11:21. [facility], US, US ABDOMEN LIMITED, 12/13/2022, 10:44. FINDINGS: Image quality: Excellent. Lung bases: Lung bases are clear. Heart: No significant findings. ABDOMEN: Liver: Unremarkable. Borderline hepatomegaly Gallbladder: Unremarkable Biliary ducts: Unremarkable. Pancreas: Homogeneous enhancement without focal lesions or pancreatic ductal dilatation. No peripancreatic inflammation or organized fluid collections. Spleen: Splenomegaly Adrenal Glands: Unremarkable. Kidneys and Ureters: Kidneys are symmetric in size and enhancement, and there is no obstructive uropathy. No perinephric inflammatory changes. Ureters are normal in course and caliber. Stomach and Bowel: Stomach, small bowel loops, and colon are unremarkable. Normal appendix. Peritoneum: No abnormal intraperitoneal fluid. No free air. Ventral Wall: No hernia. Abdominal Nodes: No retroperitoneal or mesenteric adenopathy by size criteria. Vessels: Aorta and inferior vena cava are normal in size. PELVIS: Pelvic Organs: Unremarkable. Bladder: Unremarkable. Pelvic Nodes: No enlarged lymph nodes. Miscellaneous: No inguinal hernias identified. Redemonstration of numerous nodular soft tissue densities within the left inguinal region measuring approximately 4.9 x 8.0 cm in axial cross-sectional dimension. This is not significantly changed. On recent ultrasound, these appear to be multiple dilated vascular structures. Punctate calcifications noted within these nodular densities as before. There is suggestion of communication with the common left femoral vein. The visualized gonadal veins appeared normal in caliber. The IVC and renal veins are also normal in caliber. These are isodense to venous structures of the imaged pelvis. Bones: Visualized osseous structures appear intact without acute fracture or focal destructive lesion. No acute compression fractures of the imaged spine. IMPRESSION: 1. Redemonstration of area of numerous nodular soft tissue densities within the left inguinal region measuring approximately 8.0 x 4.9 cm in size with suggestion of communication with branch of the proximal left common femoral vein. These are likely vascular structures as indicated by recent ultrasound evaluation. These have not changed in appearance compared to 2020 CT. Findings may represent a venous or lymphatic malformation. Superficial varices may have a similar appearance. Recommend further characterization with contrast enhanced MRI of the pelvis. 2. Otherwise, no acute abnormalities identified in the abdomen or pelvis. Other chronic findings as above. Dictated by: Victor Manuel Mijares M.D. on 12/13/2022 at 16:36 Approved by: Victor Manuel Mijares M.D. on 12/13/2022 at 17:16
== END ==
PROVIDERS: PCP Nurse Practitioner Family; Referring Provider Nurse Practitioner Family; Visit Provider Nurse Practitioner Family
DX: R19.09 Other intra-abdominal and pelvic swelling, mass and lump (principal)
CPT/HCPCS: 74177; 76705; Q9967

== ENCOUNTER 2022-12-19 10:32 | Outpatient (CLI) | payer OTHER, MEDICAID, SELFPAY ==
[2022-12-19] VITALS (11 sets, daily range): BP systolic 117–137; BP diastolic 83–101; PULSE 65–76; RESP 9–22; TEMP 36.1; O2SAT 92–100
--- NOTE | 2022-12-19 10:33 | DI.RAD.S_ITS ---
PROCEDURE: PAIN L/S MED/LAT N RFA BILAT INDICATIONS: SPONDYLOSIS COMPARISON: None. FINDINGS: Fluoroscopic spot filming was performed to verify placement of spinal needles at the bilateral L4, L5 and S1 pedicles level(s), as labeled on the films. Appropriate location(s) of the needle tip(s) was confirmed by injection of iodinated contrast. IMPRESSION: Access needles in the bilateral L4, L5 and S1 pedicles for medial branch rhizotomy. Dictated by: Shannon Turner MD, PhD on 12/19/2022 at 14:15 Approved by: Shannon Turner MD, PhD on 12/19/2022 at 14:16
[2022-12-19] MEDS: MIDAZOLAM 2 MG/2 ML VIAL IV ×2 (11:33→11:49)
[2022-12-19] MEDS: LIDOCAINE 1% 20 ML 5 ML INJ (11:41)
[2022-12-19] MEDS: BUPIVACAINE 0.5% (PF) 10 ML VIAL 5 ML INJ (11:41)
--- NOTE | 2022-12-19 12:20 | P.PCN_ITS ---
Date/Time/Diagnoses Date of procedure: 12/19/22 Time of procedure: 12:20 Pre-procedure diagnosis: 1. RECALCITRANT FACET ARTHROPATHY Post-procedure diagnosis: same Procedure Notes Procedure: 1. BILATERAL L4 AND L5 MEDIAL BRANCH RADIOFREQUENCY NEUROTOMY AND S1 DORSAL RAMUS BRANCH RADIOFREQUENCY NEUROTOMY Indications: Kalia is referred by NABEEL Paige for treatment of facet arthropathy. Physician: Chidi Edmonds Total Fluoroscopy time (seconds): 40 Total sedation minutes: 29 Complications: none Procedure in detail & Post-procedure care: DESCRIPTION OF PROCEDURE Bilateral L4 and L5 medial branch radiofrequency neurotomy and bilateral S1 dorsal ramus radiofrequency neurotomy under fluoroscopy with conscious sedation. The patient is well known to this clinic having undergone previous facet injections with good but temporary relief. The patient has experienced appropriate, concordant relief with previous facet and median branch blocks but the patient's pain has been recalcitrant to further conservative measures. Therefore, based upon the patient's relief and persistent symptoms, the patient is considered an appropriate candidate for facet rhizotomy. All of the patient's questions regarding the risks versus benefits of the procedure, including, but not limited to, bleeding, infection, temporary as well as lasting nerve injury, paralysis, stroke, and , as well treatment alternatives were answered to satisfaction. After obtaining informed consent, denial of pertinent drug allergies, as well as being made aware of the potential risks of bleeding, infection, spinal cord trauma, paralysis, temporary and permanent nerve damage, seizure, stroke, and possible , the patient was brought to the fluoroscopy suite and positioned prone on the fluoroscopy table. The lumbar region was prepped with Betadine and covered with a fenestrated drape in the usual sterile fashion. Appropriate monitors applied including pulse oximeter, pulse, and blood pressure for regular monitoring throughout the procedure. After review of previous anaesthesic history and IV conscious sedation the patient was deemed safe to proceed with today's procedure with IV conscious sedation as ASA class II designation. Safety time-out was performed to confirm patient ID, procedure to be performed and site of procedure. IV sedation was accomplished with a combination of 4mg of Versed administered by the RN after DO order, titrated to patient comfort during the course of the procedure while the patient remained responsive to all verbal commands. After local infiltration using 1% lidocaine, under fluoroscopic guidance, a 10- cm RF insulated needle with a 10-mm active tip was positioned parallel to the junction of the right sacral ala and the superior articulating process where the S1 dorsal ramus resides. Needle placement was confirmed with motor stimulation of .5v on the right which produced local stimulation without radicular component. The stimulation was then increased to 2v with, once again, only local multifidus stimulation without radicular component. The needle was then removed and the identical procedure was performed along the length of the right L5 medial branch with motor stimulation at .7v on the right. The identical procedure was once again performed along the length of the right L4 medial branch with motor stimulation of .5v on the right. The medial branches were then anesthetised with 0.5% Marcaine. This was then followed by two discreet lesions performed at 80 degrees Celsius for 90 seconds each. The identical procedure was repeated on the left. The patient tolerated the procedure well without signs or symptoms of complications prior to transfer to the recovery area continued monitoring without incident. The patient was then transferred to the recovery area where they were observed for an appropriate period of time after the injection. The patient reported a VAS score of 9 prior to the procedure and a post-procedure VAS of 0. POST OP INSTRUCTIONS The patient was provided a Pain Log to continue to record the patient's response to the target-specific procedure prior to the patient's follow-up visit with the referring physician. Additionally, specific post-injection care instructions and a contact number to our office were provided if concerns arise regarding possible complications associated with the procedure are suspected.
== END 2022-12-19 12:29 | disposition home or self-care (01) ==
LOC: RAD 10:32
PROVIDERS: PCP Nurse Practitioner Family; Referring Provider Physical Medicine & Rehabilitation; Visit Provider Physical Medicine & Rehabilitation
DX: M47.816 Spondylosis without myelopathy or radiculopathy, lumbar region (principal); M47.817 Spondylosis without myelopathy or radiculopathy, lumbosacral region
CPT/HCPCS: 64635; 64636; 99152; 99153; J2250